=== PATIENT | female | born 1945 | race Caucasian/White ===

== ENCOUNTER 2017-12-03 12:30 | Day surgery (SDC) | payer BC ==
[2017-12-02 12:21] VITALS: BMI 26.9
[2017-12-03] MEDS ORDERED: VASOPRESSIN 20 UNITS/ML VIAL IV ONE (14:35)
[2017-12-03] MEDS ORDERED: ACETAMINOPHEN 1000 MG/100 ML VIAL (NON FORMULARY) IVPB ONE (15:14)
[2017-12-03] MEDS ORDERED: DEXTROSE 5%-0.45% SALINE 1,000 ML IV SCH (15:15)
[2017-12-03] MEDS ORDERED: ceFAZolin SODIUM 1 GM VIAL IVPB ONE (15:26)
[2017-12-03] MEDS ORDERED: LIDOCAINE HCL/PF 2% SDV 5ML VIAL ONE (15:28)
[2017-12-03] MEDS ORDERED: PROPOFOL 20 ML ONE (15:28)
[2017-12-03] MEDS ORDERED: DEXAMETHASONE SOD PHOSPHATE 4 MG/1 ML VIAL ONE (16:15)
[2017-12-03] MEDS ORDERED: ACETAMINOPHEN INJECTION 100 ML IVPB ONE (16:20)
[2017-12-03] MEDS ORDERED: PROMETHAZINE HCL 25 MG/1 ML VIAL IVPB PRN (16:30)
[2017-12-03] MEDS ORDERED: LACTATED RINGERS SOLUTION 1,000 ML IV SCH (16:30)
[2017-12-03] MEDS ORDERED: oxyCODONE HCL 5 MG TABLET PO PRN (16:30)
[2017-12-03] MEDS ORDERED: ONDANSETRON 4 MG/2 ML VIAL IVPUSH PRN (16:30)
[2017-12-03 17:56] VITALS: TEMP 97.9
[2017-12-03 21:18] VITALS: BP 101/61; PULSE 63
--- NOTE | 2017-12-07 14:17 | PATH ---
Surgical Pathology Report Patient Name: TIFF TANNER [facility]. Rec. #: [id number] /Age/Gender: 1945 (Age: 72) / F Account: [id number] Location: [facility] SURGICAL Taken: 12/03/2017 Received: 12/06/2017 Reported: 12/07/2017 Physicians: Naif Ramsay M.D. Specimen(s) Received VAGINAL MUCOSA TISSUE Clinical History Urge incontinence Final Diagnosis VAGINA MUCOSA TISSUE, BIOPSY: SQUAMOUS MUCOSA WITH FOCAL ACANTHOSIS, PARAKERATOSIS, AND SUBMUCOSAL FIBROSIS. Electronically Signed Linsey Silvestre M.D. Gross Description Received in formalin labeled "vaginal mucosa tissue," are 2 owen portions of soft tissue measuring 3.0 x 1.2 x 0.5 cm and 3.4 x 1.4 x 0.4 cm, consistent with vaginal mucosa. No discrete lesions identified. Nursing Support Worker sections are submitted in one cassette. /12/06/2017 saudi/12/06/2017
--- NOTE | 2018-01-07 10:40 | OP ---
DATE OF OPERATION: 12/03/2017 PREOPERATIVE DIAGNOSIS: Cystocele and stress urinary incontinence. POSTOPERATIVE DIAGNOSIS: Cystocele and stress urinary incontinence. PROCEDURE: Cystocele repair and suburethral sling placement and cystoscopy. FINDINGS: A grade 3 cystocele, hypermobile urethra. SURGEON: Naif Ramsay MD ESTIMATED BLOOD LOSS: 25 mL. DRAINS: Macdonald catheter. PREOPERATIVE INDICATIONS: The patient has complaints of a vaginal bulge, which is uncomfortable. On exam, she has a grade 3 cystocele. She also has hypermobility of her urethra on exam with mild stress incontinence when the bladder is replaced into its proper position. She comes to the OR today for repair. OPERATION: The patient was brought to the OR, placed on the table in the supine position, given general anesthesia and IV antibiotics, and placed in the modified lithotomy position. The groin was prepped and draped sterilely. Time-out was performed. Macdonald catheter was placed. The midline of the vaginal mucosa over the cystocele was marked with a marking pen. Mucosa was injected with Pitressin. An incision was made in the midline over the vaginal mucosa overlying the bladder. The vaginal mucosa was then sharply dissected off the perivesical tissues in a lateral fashion. This was done back to the arch of tenderness. Excess vaginal mucosa was excised and sent for pathology. The central defect was repaired with a pursestring suture along the central aspect of the bladder, which then lifted the central part of the bladder using a 2-0 Vicryl. Then, in 2 layers using 2-0 Vicryl, the lateral repair was done bringing the muscles together as well as the mucosa. This effected a lifting of the bladder and more proper positioning. Cystoscopy was performed. The trigone appeared to be elevated in the proper position. Efflux was seen bilaterally from the UOs. No suture material was seen within the bladder. The sling was then done. Pitressin was injected over the mid portion of the urethra into the vaginal mucosa. The urethra was measured out and the middle third was marked. Incision was made over the middle third. The vaginal mucosa was then sharply dissected off the periurethral tissues in lateral fashion. Bladder was then emptied under suction and fingertip control. A mini-sling was placed. The trocar was connected to the sling through the incision and towards the obturator canal. This was done bilaterally. No evidence of perforation of the bladder or buttonholing closure was seen. This was done with cystoscopy, as well. The sling was then appropriately tightened to lie just flat over the urethra, the tightening suture was removed, and the vaginal mucosa was closed using 2-0 Vicryl suture. Good hemostasis was observed. Vaginal packing was left in place along with a Macdonald catheter, and the patient was woken up. Shaun [id number]
== END 2017-12-03 19:00 | disposition home or self-care (01) ==
LOC: JASU-SURG 12:30
PROVIDERS: ATTEND Urology
PROC: 0TSD0ZZ Reposition Urethra, Open Approach (ICD-10-PCS; 2017-12-03)
PROC: 0JQC0ZZ Repair Pelvic Region Subcutaneous Tissue and Fascia, Open Approach (ICD-10-PCS; principal; 2017-12-03 14:00)
PROC: 0TJB8ZZ Inspection of Bladder, Via Natural or Artificial Opening Endoscopic (ICD-10-PCS; 2017-12-03 14:00)
DX: N39.3 Stress incontinence (female) (male) (principal); N81.10 Cystocele, unspecified
CPT/HCPCS: 88302-TC; 94760; J0131